=== PATIENT | male | born 1960 | race Caucasian/White ===

== ENCOUNTER → 2016-07-22 | Outpatient (CLI) | payer BC ==
[~2016-07-22] MED LIST: ALEVE220 MG PO; ASPIR 8181 MG PO; ASPIRIN325 PO; ATENOLOL 100MG100 MG PO; ATORVASTATIN CA40 MG PO; CEFDINIR300 MG PO; CHLORDIAZEPOXID25 M1 PO; COLACE100 MG PO; COZAAR 50 MG TA50 M2 PO; DUONEB 2.5-0.5 M3 ML INH; FENOFIBRATE160 MG PO; KLOR-CON M2020 MEQ PO; LASIX 40 MG TAB40 M2 PO; LIDODERM 5%1 PATC1 TRANSDERM; MAGNESIUM OXID200 MG PO; MIRALAX17 GM PO; NEXIUM40 MG PO; NICOTINE TRANSD21 M1; OXYCODONE HCL 55 MG PO; PACERONE 200 M200 M1 PO; POTASSIUM20 PO; REGLAN 10 MG TA10 MG PO; SEROQUEL 25 MG25 M1 PO; TRINATE TABLET1 TAB PO; TYLENOL325 MG PO; VENTOLIN HFA 1818 GM INH; VITAMIN B COMP1 EAC7 PO; WELLBUTRIN SR100 MG PO; XANAX 0.25 MG0.25 MG PO
== END ==
LOC: CAT 10:31
DX: I71.4 Abdominal aortic aneurysm, without rupture (principal)

== ENCOUNTER 2016-07-28 17:35 | Inpatient (IN) | payer BC ==
[~2016-07-28] VITALS: Ht 172.7 cm; Wt 73.5 kg
--- NOTE | ~2016-07-28 | HC ---
[facility] [place] [address] CONSULTATION Name: KAREY DAS JR Room #: 247-P ADM IN .R.#: [id number] Admission: 07/28/16 Attend Phys: Romeo Portillo MD Discharge: Date of : 56 Report #: [id number] THIS REPORT FOR: //name// CC: Gregg Portillo PRIMARY CARE PHYSICIAN: Romeo Portillo M.D. REASON FOR REFERRAL: Hypotension. HISTORY OF PRESENT ILLNESS: The patient is a 56-year-old white male who was admitted with hypotension, weakness and dehydration. A Pulmonary Critical Care consultation was requested. The patient states that he had flu-like symptoms a week or so ago. He states that he has not been feeling well for the last few days. He is seen in followup with his radiologist regarding his previous stent placement for vascular disease. He was felt to be ill-appearing. When he was seen by Dr. Mccurdy, his blood pressure was said to be low. He was subsequently admitted. When he was admitted, his systolic blood pressure had ranged anywhere to around 70 mmHg systolic. I was then called regarding pulmonary critical care consultation. I had recommended patient be transferred to the ICU for hypotension along with multisystem organ failure including hepatitis, acute renal failure along with persistent hypotension. Currently, he feels better. Aside from his weakness and malaise, he denies any chest pain, productive cough, nausea, vomiting, diarrhea. He admits to smoking about a pack a day. He states that he believes he has COPD. He also states that he drinks half a pint of liquor per day and has done so for most of his life. His imaging studies along with his laboratory data suggests liver injury. PAST MEDICAL HISTORY: Include <ELECTRONICALLY SIGNED> By: Toby Nicholson MD 07/30/16 1409 [id number] Toby Nicholson MD /nt
--- NOTE | ~2016-07-28 | HC ---
[facility] [place] [address] CONSULTATION Name: KAREY DAS JR Room #: 217-P [facility] IN M.R.#: [id number] Admission: 07/28/16 Attend Phys: Romeo Portillo MD Discharge: 08/04/16 Date of : 56 Report #: [id number] THIS REPORT FOR: //name// CC: Gregg Portillo DATE OF SERVICE: 07/28/2016 HISTORY OF PRESENT ILLNESS: The patient is a 56-year-old male of Dr. Romeo Portillo, was seen by Dr. Yousif today in our office for followup from his aortic stent graft repair and followup from a CTA last week, which looked to have an intact aneurysm and no evidence endoleak. He had a carotid Doppler done in our office today, which had mild disease and antegrade vertebral flow, so no suggestion of a subclavian issue. Was moderately hypotensive in the 70 range, although relatively asymptomatic. He is a longtime alcoholic, unfortunately not been able to be dry and sober. Last drink was this morning. He seemed slightly jaundiced, pretty emaciated, cachectic, and poor nutrition intake. HOME MEDICATIONS: Allegedly, he was taking his home medications of Aleve, baby aspirin, K-Dur 20, Lipitor 40, Lasix 40, Nexium 40, magnesium, Xanax 0.25, Librium 25 q.i.d., Seroquel, Wellbutrin, atenolol 50, fenofibrate. PAST MEDICAL HISTORY: Aneurysm repair, bypass surgery in December 2014, hypertension, hypercholesterolemia, diastolic dysfunction, alcoholism, alcoholic liver disease, chronic kidney disease, stent graft repair, and a history of DVT. FAMILY HISTORY: Father had a coronary event at age 52. Mother at 92. SOCIAL HISTORY: He lives in [place]. Tobacco user, alcohol user, daily basis, fairly heavy. He is retired. He is still insured via his . ALLERGIES: VICODIN and DEMEROL. REVIEW OF SYSTEMS: Intermittent shakes, some nocturia, and otherwise as stated above. PHYSICAL EXAMINATION: VITAL SIGNS: Blood pressure is 70s/50s, pulse is 90s. GENERAL: He is relatively asymptomatic. He appears somewhat cachectic, but in no distress. He is alert. HEENT: Eyes reveal no xanthelasmas. They may be jaundiced. Pharynx shows dry mucous membranes. NECK: Shows preserved upstrokes. LUNGS: Clear, prolonged expiratory phase. CARDIOVASCULAR: Distant heart tones, S1, S2. ABDOMEN: Slightly protuberant. There is a liver edge [place] [address] CONSULTATION Name: KAREY DAS Room #: 217-P [facility] IN M.R.#: [id number] Admission: 07/28/16 Attend Phys: Romeo Portillo MD Discharge: 08/04/16 Date of : 56 Report #: [id number] tenderness. There is no palpable abdominal aneurysm, which has been repaired. EXTREMITIES: Reveal diminished pulses and distal pulses are diminished. NEUROLOGIC: Slightly tremulous, but otherwise intact. SKIN: Warm and dry. There is some mild palmar erythema. LABORATORY DATA: Sodium 138, potassium 4.6, BUN 19, creatinine 3.1, creatinine was 1.3 in December of last year, glucose was 91. Total bilirubin 4.1, alkaline phosphatase 3.89, magnesium is pending. Total protein 5.9, albumin 2.1, so he is malnourished. GGTP 188, SGPT 140. H and H is 8.7 and 25.8. White count 5.6, MCV 120, platelets are 52,000. Chest x-ray shows emphysema, no other changes. ASSESSMENT: 1. Hypotension, possibly multifactorial. 2. Alcoholic liver disease with elevated LFTs. 3. Mild idiopathic cardiomyopathy, EF 50% on echo today in the office. 4. History of hypertension. 5. Coronary artery disease with CABG in December 2014. 6. Hypercholesterolemia. 7. Malnourishment. 8. Status post aortic stent graft repair in 2015. 10. Chronic obstructive pulmonary disease, continued tobacco use. 11. Acute kidney insufficiency. RECOMMENDATIONS AND PLAN: Admitted to Dr. Portillo. Obviously, we have some significant issues here with hypotension and elevated liver and acute on chronic kidney insufficiency. IV hydration to allow labs to equilibrate. Possibly renal consult. His cardiovascular in fact appears to be stable. I do not believe I would utilize pressor support at this time. He is asymptomatic. We will check a UA looking for any possible other source of infection, but he denies fever or chills. There is no white count . He is thrombocytopenic with platelets 57,000. His UA is pending. Carotid Doppler was done in the office showing wide patency with antegrade vertebral flow, so not suggestive of subclavian issue. Blood pressure was higher in the right upper extremity. I will confirm that. We will discuss further with Dr. Portillo and nephrology. Thank you for allowing me to assist in the care of this patient. <ELECTRONICALLY SIGNED> By: Gregg Mccurdy MD, [facility] 08/05/16 0820 [id number] Gregg Mccurdy MD, FACC /nt
--- NOTE | ~2016-07-28 | HC ---
[facility] [place] [address] CONSULTATION Name: KAREY DAS JR Room #: 247-P [facility] IN M.R.#: [id number] Admission: 07/28/16 Attend Phys: Romeo Portillo MD Discharge: Date of : 56 Report #: [id number] THIS REPORT FOR: //name// CC: Federico Mccurdy MD [facility] Romeo Portillo MD DATE OF SERVICE: 07/29/[address] Romeo Portillo, Dr. Gregg Mccurdy, and Dr. Federico Yousif. CHIEF COMPLAINT: This is a very pleasant 56-year-old white male whom I am asked to evaluate for possible etiologies of a hemoglobin of 6. The patient denies any hematemesis, hematochezia or melena. He has also got thrombocytopenia. PAST MEDICAL HISTORY: Significant for hypertension, hyperlipidemia, arthritis, depression, peptic ulcer disease and he has a history of vitamin B12 deficiency that has not been replaced. The patient has a history of heavy alcohol use, currently is withdrawing from alcohol, but is not in acute DTs at this time. He is noted to have an alcoholic hepatitis, his lipase is elevated, his urine has been dark. His appetite has been decreased for the last 3 days. The patient states that he has epigastric abdominal pain that occurs just postprandially. It is relieved by Aleve, so he takes Aleve four tabs a day. The pain is located in his epigastric area. It is nonradiating and lasts about 20 minutes. The patient also had a history of abdominal aortic aneurysm that was stented in 2016 and he was recently checked and found to be patent and functional. The real reason that the patient is in the intensive care unit right now is because of urinary tract infection and possible urosepsis as well. He has a history of coronary artery disease. He also has a history of hypothyroidism diagnosed on this admission apparently. He has a history of depression. PAST SURGICAL HISTORY: Significant for coronary artery bypass grafting a couple of years ago. He has also had some surgery on his right shoulder. ALLERGIES: Demerol, OxyContin, hydrocodone, Crestor and Chantix. MEDICATIONS: At home included Nexium, Aleve, albuterol, Tenormin, Lipitor, Wellbutrin. Currently is on chlordiazepoxide. At home, he was also taking Cozaar, magnesium oxide, vitamins, Seroquel, and vitamin B complex. Currently, he is taking Zosyn, thyroxine, thiamine, norepinephrine, Valium, and Librium. SOCIAL HISTORY: The patient is regular 1 pack a day smoker and he does drink alcohol, last time he was in the hospital and I tried to ask him to quantify how [facility] [address] [place] [address] CONSULTATION Name: KAREY DAS JR Room #: 247-P [facility] IN M.R.#: [id number] Admission: 07/28/16 Attend Phys: Romeo Portillo MD Discharge: Date of : 56 Report #: [id number] much he drink he fell very threatened by my question and would not give me any answer. I understand that he did stop drinking for a while and then restarted drinking this past May. FAMILY HISTORY: Negative for colon polyps, colon cancer, Crohn's disease and ulcerative colitis. REVIEW OF SYSTEMS: He has occasional dysphagia to solids. Denies any odynophagia. He does have gastroesophageal reflux that controlled with Nexium. He has no history of a hiatal hernia, but does have a duodenal ulcer. Denies any hematemesis, hematochezia or melena. He denies any constipation or diarrhea. He has had darkening of the urine, which is probably related to his mild pancreatitis and his alcoholic hepatitis. He states his weight has been going down. His appetite has been decreased. He complains of postprandial pain as described above that lasts about 20 minutes and he takes Aleve to relieve this. PHYSICAL EXAMINATION: GENERAL: Reveals a well-developed, poorly-nourished 56-year-old white male who is in no apparent distress. At the time of my examination, he is awake and alert and oriented times 4 and cooperative. He is somewhat tremulous. He is jaundiced. HEENT: He is normocephalic and atraumatic, but he is icteric. HEART: Rate and rhythm are regular with a normal S1 and S2. CHEST: Clear bilaterally in all berger. ABDOMEN: Soft. Bowel sounds are present in all 4 quadrants. There is palpable hepatomegaly about 3-4 fingerbreadths below the right costal margin and has tender hepatomegaly. I cannot appreciate a saline tip on abdominal exam. I heard no abdominal bruits. The abdomen is nontender at this time except for palpation of the liver that he indicates is tender. EXTREMITIES: Warm and dry. NEUROLOGIC: Appears grossly intact without lateralizing signs, but I did not test him extensively neurologically. IMPRESSION: 1. Anemia. Hemoglobin 6 and he has got heme negative stool times 1, but his MCV is elevated at 118. He has a history of B12 deficiency, but his B12 level is excellent at this time. He has also thrombocytopenic. 2. The patient has occasional solid food dysphagia for the past 2 years. He is on proton pump inhibitors for his gastroesophageal reflux. He has a history of a duodenal ulcer. He is malnourished at this time, but was able to eat some food today even though his alcoholic hepatitis remains an issue. His albumin is very low and this may be multifactorial due to poor intake and poor synthetic function by the liver. I concerned about this postprandial pain that he has because it may be an indicator of mesenteric ischemia. 3. The patient also has a history of a duodenal ulcer. He does take proton [facility] [address] [place] [address] CONSULTATION Name: KAREY DAS Room #: 247-P [facility] IN [facility].#: [id number] Admission: 07/28/16 Attend Phys: Romeo Portillo MD Discharge: Date of : 56 Report #: [id number] pump inhibitors at home. Here, he is on Pepcid. At home, his gastroesophageal reflux symptoms were controlled with PPIs as well. 4. He appears to currently have alcoholic hepatitis and asterixis. He is at a high risk of alcohol withdrawal complications. His low blood pressure may actually be causing decreased perfusion to the liver and that may complicate his recovery from the alcoholic hepatitis. Hypotension could also contributing to mesenteric ischemia. 5. The patient started to note darkening of the urine 3 days ago when he stopped drinking alcohol. This is probably from his alcoholic hepatitis, but his lipase was also mildly elevated on admission in the 800 range. 6. The patient has an aortic stent placed last year and recent evaluation of that stent shows that it is working well and is patent. 7. The patient reports postprandial epigastric pain lasts about 20 minutes, this could be ischemia. He says he takes the Aleve to relieve this pain. 8. The patient is a 1 pack a day cigarette smoker. 9. Acute urinary tract infection, awaiting culture and sensitivity of urine. It is possible he may have had urosepsis. He is currently on Zosyn and Flagyl. 10. I think he may be bipolar. He thinks that his depression is not well treated. Currently, he is taking Seroquel only and I wonder if he would benefit from antidepressant, also psychological evaluation might be helpful with this. 11. The patient has a history of hypertension, but he is currently hypotensive. He also has a history of hyperlipidemia, arthritis, B12 deficiency. 12. He appears to have a new hypothyroidism. My recommendations are as follows, I would recommend switching to proton pump inhibitor because of his history. We will watch closely acute alcohol withdrawal and delirium tremor as I suspect he will have them. 13. We will add Boost t.i.d. to his supplement his diet. 14. Continue broad spectrum antibiotics consisting of Zosyn and metronidazole until urine culture comes back and then narrow the spectrum if possible. 15. We will workup liver for other causes of hepatitis. 16. Agree with Synthroid. 17. Possible psych eval ?. 18. Consider CTA of mesenteric artery when the patient is able to be off pressors. He has arterial vascular disease and other arteries. 19. We will check hepatitis A, B, C. 20. We will check alpha fetoprotein. 21. We will check his cerebral plasma and alpha 1 antitrypsin, CHEO, sed rate, and smooth muscle antibody. 22. We will do guaiac stools 2 more times. Thank you very much once again for allowing me to participate in his care. <ELECTRONICALLY SIGNED> By: Yumiko Yeung DO 07/30/16 2142 [id number] [id number] Yumiko Yeung DO /nt
--- NOTE | ~2016-07-28 | HC ---
[facility] [place] [address] CONSULTATION Name: KAREY DAS JR Room #: 247-P [facility] IN .R.#: [id number] Admission: 07/28/16 Attend Phys: Romeo Portillo MD Discharge: Date of : 56 Report #: [id number] THIS REPORT FOR: //name// CC: Gregg Portillo REFERRING PHYSICIAN: Romeo Portillo MD. REASON FOR REFERRAL: Hypotension, critical care management. HISTORY OF PRESENT ILLNESS: The patient is a 56-year-old white male who was admitted directly to the CCU with hypotension, weakness and dehydration. A pulmonary critical care consultation was requested. The patient states that he had flu like symptoms over the past week or so. He has not been feeling very well. He was undergoing routine checkup by his radiologist. He was felt to be ill appearing. He was then seen by Dr. Mccurdy. His blood pressure was found to be low. He was subsequently admitted. He was then admitted to the CCU. His systolic according to the nurse had been maneuvering around 70 mmHg for the last few hours. He was admitted around 4:00 in the afternoon according to RN. I have recommended the patient to be transferred to ICU. He was given IV fluids along with vasopressors. Currently, he feels better. He still feels weak . Otherwise, denies any recent febrile illness. The patient does have a history of alcohol abuse and drinks about half a pint a day. Otherwise, no recent febrile illness, chest pain, nausea, vomiting, diarrhea. PAST MEDICAL HISTORY: Includes tobacco abuse, COPD, coronary artery disease, undergoing coronary artery bypass surgery, aortic aneurysm repair, hypertension, hypercholesterolemia, chronic diastolic dysfunction, alcohol abuse, alcoholic liver disease as mentioned above, chronic kidney disease, history of DVT. ALLERGIES: To VICODIN and DEMEROL, reactions unspecified. MEDICATIONS: Lists are reviewed. FAMILY HISTORY: Notable for coronary artery disease in father at the age of 52. Mother at the age of 92, cause unknown. SOCIAL HISTORY: The patient is . He continues to smoke about a pack a day. Continues to drink half a pint a day. He is retired. [facility] [address] [place] [address] CONSULTATION Name: KAREY DAS Room #: 247-P [facility] IN [facility].#: [id number] Admission: 07/28/16 Attend Phys: Romeo Portillo MD Discharge: Date of : 56 Report #: [id number] REVIEW OF SYSTEMS: As mentioned above, otherwise 10-point system review negative. PHYSICAL EXAMINATION: GENERAL: She is awake, alert, in no apparent distress. VITAL SIGNS: Blood pressure had been running 70 mmHg systolic, now to 88 mmHg systolic. Pulse is around 90. Respiratory rate is 20. Saturation more than 90%. The patient is afebrile. HEENT: Normocephalic, atraumatic. NECK: Supple, without lymphadenopathy or thyromegaly. CHEST: Breath sounds are decreased bilaterally without any obvious rales or wheezes. CARDIOVASCULAR: Normal S1, S2. No murmurs or gallop. There is no JVD. There is no carotid bruit. Pulses are 2+/4+ bilaterally. ABDOMEN: Soft, nontender. Hepatomegaly is felt measuring about 4 cm below the right costal margin. GENITOURINARY AND RECTAL: Deferred. EXTREMITIES: There is no edema, cyanosis or clubbing. LABORATORY DATA AND CHEST X-RAY: Reviewed. Electrolytes, creatinine , sodium 138, potassium 4.6, chloride 101, CO2 is 18, BUN is 19. Liver function profile is moderately elevated. WBC is 5600, hemoglobin is 8.7, platelets are 52,000. Albumin is 2.1. Arterial blood gas revealed pH 7.52, pCO2 28, pO2 78 on room air. IMPRESSION: 1. Hypotension, felt to be related to extracellular volume depletion, possible sepsis. 2. Alcohol abuse or alcoholic liver disease. 3. Coronary artery disease with cardiomyopathy with estimated ejection fraction 50%. 4. Hypotension. 5. History of chronic obstructive pulmonary disease with ongoing tobacco abuse. 6. Acute kidney disease/chronic kidney disease. RECOMMENDATION: We will transfer to the ICU, start IV fluids, vasopressors. Broad spectrum antibiotics to treat for possible sepsis, possible UTI. Alcohol withdrawal prophylaxis will be recommended. DVT and GI prophylaxis will be addressed. Bronchodilators will be initiated. The patient would benefit from consultation regarding tobacco and alcohol cessation. [address] [address] CONSULTATION Name: KAREY DAS JR Room #: 247-P [facility] IN M.R.#: [id number] Admission: 07/28/16 Attend Phys: Romeo Portillo MD Discharge: Date of : 56 Report #: [id number] Thank you for the consultation. <ELECTRONICALLY SIGNED> By: Toby Nicholson MD 07/31/16 1527 1408 1534 Toby Nicholson MD /nt
--- NOTE | ~2016-07-28 | HC ---
[facility] [place] [address] CONSULTATION Name: KAREY DAS JR Room #: 247-P ADM IN M.R.#: [id number] Admission: 07/28/16 Attend Phys: Romeo Portillo MD Discharge: Date of : 56 Report #: [id number] THIS REPORT FOR: //name// CC: Gregg Portillo DATE OF SERVICE: 07/29/2016 TITLE OF CONSULTATION: ICU critical care renal consultation. HISTORY OF PRESENT ILLNESS: This 56-year-old male has a very complicated medical history which includes diffuse atherosclerotic cardiovascular disease with known abdominal aortic aneurysm, status post previous stent graft as well as coronary artery disease, status post previous coronary artery bypass surgery. The patient has a significant history of chronic alcohol abuse. He presented to [facility] for followup of his aortic stent graft and was found to be in poor medical condition. He was sent to the [facility] Emergency Room, where he was found to be in acute kidney injury and admitted to the intensive care unit for hypotension and fluid and electrolyte management. The patient acknowledged recent significant alcohol abuse. He describes it as a pint per day of [place]. Laboratory studies on initial presentation included sodium 138, potassium 4.6, chloride 101, CO2 of 18, BUN 19 and creatinine 3.1. AST 277, alk phos 389 and ALT 140. Bilirubin 4.1. Albumin 2.1. PAST MEDICAL HISTORY: Otherwise remarkable as described above. ALLERGIES: Reported to CHANTIX, ROSUVASTATIN, MEPERIDINE and HYDROCODONE. PERSONAL AND SOCIAL HISTORY: The patient is an active drinker as described above. He smokes more than a pack of cigarettes per day. FAMILY HISTORY: Negative for renal disease. CURRENT MEDICATIONS: Include atorvastatin, furosemide, potassium, Librium, Nexium, Aleve, losartan and atenolol. REVIEW OF SYSTEMS: Remarkable for poor appetite and poor oral intake of both liquids and foods. He denies nausea, vomiting, diarrhea or constipation. He denies shortness of breath, productive cough or hemoptysis. PHYSICAL EXAMINATION: GENERAL: Reveals a chronically ill, malnourished male who is rather tremulous, but in no acute distress. VITAL SIGNS: Blood pressure 90/59, pulse 86 and temperature 98. SKIN: Reveals diminished turgor, with no edema. HEENT: Mucous membranes are dry. The head is normocephalic and atraumatic. [address] [address] CONSULTATION Name: KAREY DAS Room #: 247-P [facility] IN .R.#: [id number] Admission: 07/28/16 Attend Phys: Romeo Portillo MD Discharge: Date of : 56 Report #: [id number] The sclerae are icteric. HEENT reveals poor dentition. NECK: Supple. There is no JVD present. LUNGS: Lung berger reveal scattered rhonchi, with minimal expiratory wheezes. CARDIAC EXAMINATION: Reveals a regular rate and rhythm. ABDOMEN: Soft and nontender, without palpable mass or organomegaly. NEUROLOGICAL EXAMINATION: Reveals the patient to be tremulous, but with a nonfocal examination. LABORATORY DATA: Laboratory studies available at the time of consultation include sodium 140, potassium 4.0, chloride 107, CO2 of 24, BUN 20 and creatinine 2.5. White blood cell count 4.0, hemoglobin 7.6, hematocrit 22.2 and platelet count 46,000. Urinalysis reveals slightly cloudy yellow urine, specific gravity 1.020, pH of 5, 2+ protein, trace glucose, 1+ ketones and 3+ bilirubin. ASSESSMENT: 1. Acute kidney injury in the setting of chronic malnutrition and alcohol toxicity. I believe the patient is significantly prerenal at this time and needs isotonic rehydration. I expect his renal function to improve provided that he has not evolved into hepatorenal syndrome, which I think unlikely at this point in time. We will check serial laboratory studies, I and O and daily weights as well as urine for sodium, creatinine and protein and a renal ultrasound. 2. Advanced alcoholic liver disease. 3. Diffuse atherosclerotic cardiovascular disease. 4. Status post previous aortic sent graft. 5. Coronary artery disease, status post previous coronary artery bypass surgery. 6. Ongoing significant tobacco abuse with chronic obstructive pulmonary disease. PLAN: We will follow serial laboratory studies, I and O and daily weights. I have discussed this in detail with the patient and his . Critical care 45 minutes. <ELECTRONICALLY SIGNED> By: Lenny Reyes MD 07/30/16 1133 1057 [id number] Lenny Reyes MD /nt
--- NOTE | ~2016-07-28 | S ---
[facility] [place] [address] SURGICAL PATH RPT PROCEDURE Name: KAREY DAS JR Room #: 247-P ADM IN M.R.#: [id number] Admission: 07/28/16 Date of : 56 Discharge: Report #: [id number] Path Case #: [id number] PATHOLOGY REPORT COLLECTION DATE: 07/30/2016 RECEIVED DATE: 07/30/2016 SUBMITTING PHYS: Dr. Mary Rg OTHER PHYS: Dr. Gregg Reyes SPECIMEN(S) RECEIVED: A.Peripheral smear * * * * * * * * * * * * FINAL DIAGNOSIS: Peripheral blood smear: - Severe macrocytic anemia and severe thrombocytopenia. (see comment) COMMENT: Overall, the peripheral blood has severe macrocytic anemia and severe thrombocytopenia. The WBC count is within the normal reference range. No schistocytes or microspherocytes are seen. The etiology of the findings is unclear based entirely on slide review. Potential causes of macrocytic anemia include vitamin B12 and/or folate deficiency, liver and/or thyroid disease, and primary bone marrow disorders. Potential causes of thrombocytopenia include immune and non-immune platelet destruction, drug and/or toxic exposures, acute blood loss, dilutional, and primary bone marrow disorders. Correlation with clinical history and additional laboratory data is recommended. The case is discussed with Dr. Mary Rg on 07/30/16 at approximately 10:30 AM. (CLW:; d/t: 07/30/16) PATHOLOGIST: Lola Jacques M.D. REPORT ELECTRONICALLY SIGNED BY: Lola Jacques M.D. DATE/TIME: 07/30/2016 15:05 * * * * * * * * * * * * MICROSCOPIC DESCRIPTION: CBC Data (07/30/16): WBC 4,500 /uL, RBC 1.68, hemoglobin 6.7 g/dL, hematocrit 19.9%, MCV 118.7 fL, MCH 40.0 pg, MCHC 33.7 g/dL, RDW 14.2%, platelet count 42,000 /uL. Manual white blood cell differential: 75% segs, 3% bands, 9% lymphs, 8% monos, 5% eos. Peripheral Blood Smear: [address] [address] SURGICAL PATH RPT PROCEDURE Name: KAREY DAS Room #: 247-P ADM IN M.R.#: [id number] Admission: 07/28/16 Date of : 56 Discharge: Report #: [id number] Path Case #: [id number] Cytomorphological examination of the Murray's stained peripheral blood smear confirms the provided data. Red blood cells show severe macrocytic anemia with no significant anisopoikilocytosis. Occasional hematocytes are noted. No schistocytes or microspherocytes are seen. White blood cells are predominantly segmented neutrophils and are without significant dyspoiesis or significant left shift. Lymphocytes are predominantly small, round, and mature appearing with condensed chromatin and scant cytoplasm with admixed large granular lymphocytes. On scanning, no markedly atypical lymphoid cells are seen. Monocytes are mature. Platelets are markedly decreased in number and mainly normal in morphology with rare larger platelets noted. CLINICAL HISTORY: 56 year-old man with anemia and thrombocytopenia. Morphologic review of the peripheral blood smear is requested by the patient's physician. INITIAL CPT CODE(S): A; [place] Professional services performed by [facility] at [facility] [address], [place] [address] Technical services performed by [facility] at [address] [place] [address], [address], [place] [address]. [facility] [address] [place] [address] PHONE: [phone] DIRECTOR: Ulisses Yusuf M.D. * * * END OF REPORT * * *
--- NOTE | ~2016-07-28 | HC ---
[facility] [place] [address] CONSULTATION Name: KAREY DAS JR Room #: 217-P ADM IN M.R.#: [id number] Admission: 07/28/16 Attend Phys: Romeo Portillo MD Discharge: Date of : 56 Report #: [id number] THIS REPORT FOR: //name// CC: Gregg Portillo DATE OF SERVICE: 08/02/2016. CHIEF COMPLAINT: Right elbow infection. HISTORY OF PRESENT ILLNESS: This frail 56-year-old gentleman with psychiatric disease and alcohol abuse is admitted for hypotension and confusion and it appears that he has alcohol related confusion and toxic encephalopathy. In addition, he apparently fell at home 1 or 2 weeks ago resulting in a small abrasion over the lateral aspect of the right elbow. Now, he has persistent redness, warmth and superficial oozing from this area of abrasion, there is some question about possible involvement of the olecranon bursa as well. At the time of my evaluation, he is accompanied by his . She is able to offer his history. He is slightly confused and lethargic. He states he has no other areas of significant discomfort aside from the right elbow. The right elbow demonstrates normal contour, alignment and full range of motion. There is, however, some mild puffiness at the posterior aspect overlying the olecranon bursa. The bursa itself; however, does not seem to be involved with significant fluid and certainly does not have the appearance of an abscess nor a significant septic bursitis. There is, however, an area of a deep abrasion over the lateral aspect adjacent to the olecranon bursa, this is about 1.5 cm in diameter and has some yellowish seropurulent oozing. There is no clear evidence of a subcutaneous abscess in this region, but there is a significant superficial soft tissue infection. There is not much swelling or redness about the remainder of the distal arm or upper forearm. NEUROLOGIC: Distal neurologic and vascular status appeared to be intact. IMPRESSION: In summary, this gentleman has a soft tissue infection with cellulitis near the tip of the right elbow. At this point, I do not see evidence of a significant olecranon bursitis or abscess. Consequently, I do think surgical debridement at this point is necessary, he has been started on appropriate IV antibiotics and I expect we will see some improvement. I will follow along and certainly may reconsider the option of surgical debridement if there seems to be more significant fluid collection or abscess formation in the region of the bursa. <ELECTRONICALLY SIGNED> By: Federico Green MD 08/03/16 1050 0801 0925 Federico Green MD /nt
--- NOTE | ~2016-07-28 | HC ---
[facility] [place] [address] CONSULTATION Name: KAREY DAS JR Room #: 217-P [facility] IN .R.#: [id number] Admission: 07/28/16 Attend Phys: Romeo Portillo MD Discharge: Date of : 56 Report #: [id number] THIS REPORT FOR: //name// CC: Gregg Portillo DATE OF SERVICE: 07/31/2016 IDENTIFICATION: Psychiatric consultation is requested for mood disorder and alcohol withdrawal. HISTORY OF PRESENT ILLNESS: The patient is a 56-year-old , retired male with a longstanding history of alcohol dependence. He was seen by Dr. Herman for psychiatric consultation in 11/2015. At that time, there was no evidence that the patient had any underlying history of roxie or psychosis and he also denied any significant depression. He did, however, endorse anxiety and there appeared to be some component of self medicating. Sobriety was certainly recommended. He was offered followup with Dr. Herman and with Anthony Smith, but it does not appear that patient followed through. The patient is now in the hospital with alcohol withdrawal. He had reportedly won his disability case and relapsed on alcohol to celebrate and continued drinking. In short however, it is not convincing whether the patient truly had a prolonged period of sobriety. Certainly he continues displaying significant alcohol withdrawal symptoms here and he has lab stigmata of chronic alcohol use. He has been impulsive and confused during his stay here in the hospital. ALLERGIES: Reviewed. Full list available on the chart. Psychiatric medication allergies include Chantix. MEDICATIONS: Reviewed and include Librium 75 mg every 3 hours as needed, Librium 75 mg every 4 hours as needed, Librium 75 mg every 4 hours scheduled, Valium 5 mg IV or oral as needed, Ativan, various dosing and order set noted, Xanax 0.25 mg 3 times daily as needed. PAST MEDICAL HISTORY: Alcohol-related comorbidities including transaminitis, thrombocytopenia, anemia, sepsis, urinary tract infection, history of DVT, abdominal aortic aneurysm, coronary artery disease status post coronary artery bypass graft, hyperlipidemia, COPD, hypothyroidism. FAMILY HISTORY: Noncontributory. SOCIAL HISTORY: The patient is and lives with his . He smokes cigarettes. LABORATORY DATA: Urine drug screen was positive for [place] [address] CONSULTATION Name: KAREY DAS Room #: 217-P [facility] IN .R.#: [id number] Admission: 07/28/16 Attend Phys: Romeo Portillo MD Discharge: Date of : 56 Report #: [id number] alcohol level less than 10. AST initially 277, most recently 210. ALT initially 140, most recently 127. MENTAL STATUS EXAMINATION: Disheveled appearance. cooperative, but confused. Currently, unable to offer meaningful history. Did deny any suicidal or homicidal ideation. No evidence for hallucinations or delusions. Insight and judgment are currently poor. DIAGNOSIS: Alcohol dependence, delirium. PLAN: Firstly, given the patient's transaminitis, would recommend utilizing lorazepam as the mainstay of treatment for alcohol withdrawal. This agent is preferable to the Librium due to differences in first pass hepatic metabolism. It is noted that the patient has orders for different benzodiazepines on his chart. We will simplify down to simply the lorazepam. We will use 2 mg for a CIWA of 8 to 15 and 4 mg for a CIWA of greater than 15. [address] him on an Ativan taper starting with 2 mg every 4 hours. We will discontinue the Xanax and I would not resume this in the future. He is highly likely to abuse this medication on an outpatient basis given his history of alcohol dependence. Given the patient's current delirium and confusion, I am unable to adequately assess any underlying depression or anxiety. I will return tomorrow to reassess his mental status. Thank you for this consultation. Please contact me with any further questions or concerns. <ELECTRONICALLY SIGNED> By: Margarita Lynn MD 08/01/16 1234 1350 [id number] Margarita Lynn MD /nt
--- NOTE | ~2016-07-28 | H ---
[facility] [place] [address] HISTORY AND PHYSICAL Name: KAREY DAS JR Room #: 247-P ADM IN M.R.#: [id number] Admission: 07/28/16 Attend Phys: Romeo Portillo MD Discharge: Date of : 56 Report #: [id number] THIS REPORT FOR: //name// CC: Gregg Portillo DATE OF SERVICE: 07/28/2016 CHIEF COMPLAINT: Weakness, dehydration, anemia. HISTORY OF PRESENT ILLNESS: The patient has an abdominal aortic aneurysm that was repaired last summer with a stent graft done. In routine followup with his stent graft, he had a CT scan here last week that showed the stent graft to be in good position. He was seen for routine office appointment today by Dr. Yousif, who confirmed that the stent graft was indeed doing well and correctly placed and did not have an endoleak, but noticed that the patient appeared pale, weak and shaky with the low blood pressure. He was referred to the Cardiology division of [facility] where Dr. Mccurdy agreed that his blood pressure was too low, and he is referred to the hospital for further evaluation. Upon coming to the hospital, laboratory already drawn shows that he is volume depleted with a creatinine elevated, and a hemoglobin that is low. His liver enzymes are elevated. He reports having been sober until recently when he "1" his case for social security complete disability. At that time, the steady source of income relates quite a bit of stress and he decided to celebrate with a drink. Unfortunately, with his alcoholism, he did not stop drinking and currently continues to drink actively. This has been going on for several weeks or several months, and he has become progressively weaker. His last alcoholic drink was this morning. He has not been eating, and his recent weight loss has been 20 pounds. He has had dry heaves. He denies seeing blood in the stool, but has seen an occasional superficial bright red blood in the outside of the stool. He has chronic abdominal pain that has not changed for some time, note is made that an EGD performed last summer was normal. He continues to have chronic abdominal pain, and did have bleeding ulcers identified on an EGD many years ago. Because of chest pain at the site of his surgery, and neck pain, he takes 2-4 Aleve tablets every day. PAST MEDICAL HISTORY: Is significant for bleeding or stomach ulcers in the distant past as mentioned above. He also has chronic and now this episode of acute alcoholism. He smokes a pack a day. He has coronary artery disease, that required a coronary artery bypass graft in 12/12/[address] Ricardo Zhao. [place] [address] HISTORY AND PHYSICAL Name: THIAGOKAREY Room #: 247-P [facility] IN M.R.#: [id number] Admission: 07/28/16 Attend Phys: Romeo Portillo MD Discharge: Date of : 56 Report #: [id number] He had an infrarenal abdominal aortic aneurysm stent graft placed by Dr. Youngblood and Dr. Blanco on 12/14/2015. After his bypass surgery, he had a prolonged recovery that appeared to be delirium tremens from alcohol withdrawal. He since has had previous withdrawal of episodes from alcohol. He has a history of alcoholic hepatitis, anxiety, depression, chronic gastroesophageal reflux disease, insomnia, hypertension, hyperlipidemia, chronic insomnia that has been benefitted in the past from quetiapine 25-75 mg at bedtime. He has COPD and remains current cigarette smoker. He has diastolic dysfunction, although an echocardiogram in Dr. Mccurdy's office today appeared to have preserved left ventricular function. ALLERGIES: Unknown reaction to CHANTIX, ROSUVASTATIN, this caused aches, breathing problems after his cardiac surgery from MEPERIDINE and HYDROCODONE has caused itching. SOCIAL HISTORY: He is an active drinker. His brings him alcohol "so that he won't get in the car and drive himself to the store." He smokes more than a pack of cigarettes per day, although his points out that most of the cigarettes he smokes only a few puffs off before he puts them out. He lives independently at home with his . She worse during the day and currently he is alone by himself at home during the day. When asked about resuscitation, he indicated that he wanted one attempt at cardiopulmonary resuscitation, his was present and she is his power of collections attorney and she agreed with this. They both settled on a "full code blue without placement on a life support machine" and is therefore made a full code, but do not intubate. He reports he just simply is not able to eat and has nausea and dry heaves easily. He has chronic neck pain that is really bothersome to him and constantly has his neck forward. He denies shortness of breath. He does have a sternal incision pain when he moves his thorax very much. He had a bout of diarrhea several weeks ago. He did have some "blood on the outside of the stool" recently as well. Vague nausea has tremendously reduced his oral intake. He denies other musculoskeletal aches and pain. CURRENT MEDICATIONS: List was reviewed with his who gives him his medications: Atorvastatin 40 mg daily, potassium chloride 20 mEq one half tablet daily, chlordiazepoxide 10 mg tablet twice daily for morning and evening shakes, mvge-ley-qacprhw Nexium two pills every morning (40 mg total), Aleve oeav-roy-innddwv tablets 2 pills in the morning and he does not take baby aspirin because he says the two Aleve tablets provide the same antiplatelet [facility] [address] [place] [address] HISTORY AND PHYSICAL Name: KAREY DAS Room #: 247-P [facility] IN .R.#: [id number] Admission: 07/28/16 Attend Phys: Romeo Portillo MD Discharge: Date of : 56 Report #: [id number] effect. Furosemide 40 mg daily was discontinued several months ago (it had been administered last fall for his mild cardiomyopathy). Losartan 50 mg in the evening by Dr. Mccurdy. He has cut in half. Atenolol 100 mg, he is taking a full pill. He has vitamin, Super B-complex, magnesium oxide 400 mg 1 daily, vitamin D3 5000 units and liquid vitamins that one of his children have brought him that has helped him gain strength. PHYSICAL EXAMINATION: GENERAL: Shows a -fuzt-rct male who is weak and shaky and appears chronically ill. He was examined in his hospital bed at night and shades of jaundice could have been missed. HEENT: Unremarkable except that oral mucosa was quite dry. CHEST: Breath sounds are slightly diminished anteriorly and posteriorly both the right and the left lung berger without extra sounds. CARDIOVASCULAR: S1 and S2 are normal and regular. ABDOMEN: Soft and nontender. The liver appears to be about 4 fingerbreadths below the mid right costal margin, and the liver edge is somewhat firm. No other organomegaly or masses were identified. The heart tones are normal and the rhythm is regular. EXTREMITIES: There is minimal amount, if any of pedal edema present in the lower extremities. NEUROLOGIC: No gross focal neurological motor deficits are identified. His outstretched hands have a noticeable tremor. LABORATORY DATA: His laboratory is remarkable for a creatinine of 3.1 compared with his office baseline from May 2016 that was 1.59. His BUN remains at 19. His CO2 is low at 18 with an high anion gap. His normal bilirubin is 0.4, when last seen in my office 05/12/2016 his bilirubin had risen to 2.1, and today is even higher at 4.1. His AST was 277, compared with 491 in my office and his ALT is 140 compared with 262 in my office. His albumin is severely low at 2.1. WBCs are 5.6 thousand, hemoglobin is low at 8.7 compared with a baseline of 10.4 from my office. His MCV is 120.7 compared with 111 from May. His platelet count is diminished at 52,000 compared with a 129,000 from May 12. A chest x-ray report shows normal cardiac size with severe cystic changes of COPD. ASSESSMENT: 1. Severe weakness. 2. Metabolic acidosis. 3. Acute renal failure. [address] [address] HISTORY AND PHYSICAL Name: KAREY DAS JR Room #: 247-P ADM IN M.R.#: [id number] Admission: 07/28/16 Attend Phys: Romeo Portillo MD Discharge: Date of : 56 Report #: [id number] 4. Nausea, vomiting and abdominal pain. 5. Acute anemia. 6. Acute thrombocytopenia. 7. Acute on chronic alcoholism - his breaths had the unmistakable odor of alcohol. 8. Untreated depression. 9. Anxiety treated with chlordiazepoxide. 10. Insomnia - chronic. PLAN: He is being admitted on an alcohol withdrawal protocol, using a chlordiazepoxide 50 mg every 4 hours as a "underlying base" with IV diazepam as needed. Laboratory studies will be repeated in the morning. He may need a repeat EGD given his history of bleeding ulcers in the distant past, as he has been steadily loosing weight - 20 pounds - over the last several months to six months and is continually taking 2-4 Aleve tablets a day for various aches and pain. Abdominal ultrasound will be done to evaluate his firm liver border as well as his low platelet count. Blood for culture. A full code blue with do not intubate. By: [id number] Romeo Portillo MD /nt
--- NOTE | ~2016-07-28 | HC ---
[facility] [place] [address] CONSULTATION Name: KAREY DAS JR Room #: 217-P [facility] IN .R.#: [id number] Admission: 07/28/16 Attend Phys: Romeo Portillo MD Discharge: Date of : 56 Report #: [id number] THIS REPORT FOR: //name// CC: Gregg Portillo DATE OF SERVICE: 08/01/2016 HISTORY OF PRESENT ILLNESS: The patient is a 56-year-old white male who was admitted with hypotension, volume depletion, noted to have septic shock. He had acute renal failure. He was noted to have acute on chronic alcoholic hepatitis. He was monitored regarding alcohol withdrawal. He continued on vasopressors, also was noted to have pancytopenia with severe thrombocytopenia, suspected bone marrow toxicity related to alcohol. He gradually stabilized. Hypotension is better on midodrine. Renal function has improved. He has been transferred out of the intensive care unit and is on the progressive care unit. We are seeing him in rehabilitation medicine consultation. PAST MEDICAL HISTORY: Includes an abdominal aortic aneurysm, which was repaired with a stent graft 12/14/2015; history of coronary artery bypass grafting x5, 12/12/2014; moderate cardiomyopathy; history of COPD; history of bleeding stomach ulcers in the past. HABITS: Tobacco 1 pack per day, past history of ETOH. He stopped his drinking, but then when he apparently was cleared for Medicare disability, to celebrate he began drinking again and then continued with drinking up to the point of this hospitalization. ALLERGIES: CHANTIX, DEMEROL, HYDROCODONE, CRESTOR. SOCIAL HISTORY: Lives with , she works. He is alone during the day. House, 2 steps in. There is a ramp. He did use a walker if needed. REVIEW OF SYSTEMS: No current complaints of chest pain, shortness of breath or abdominal discomfort. No focal extremity pain complaints. PHYSICAL EXAMINATION: GENERAL: He is a 56-year-old unkempt white male in no obvious distress. VITAL SIGNS: Last recorded temperature is 97.3, pulse of 96, respirations 20, blood pressure 97/67. GENERAL: He is alert, follows basic 1 step commands without difficulty. HEENT: Facies are symmetric. EXTREMITIES: He has functional range of motion of both upper extremities without obvious focal weakness. DTRs are trace to 1. In his lower extremities, there is no focal calf swelling, functional range of motion, strength is a grade 4/5. DTRs are trace to 1. Tone appeared to be intact. [place] [address] CONSULTATION Name: KAREY DAS JR Room #: 217-P [facility] IN [facility].#: [id number] Admission: 07/28/16 Attend Phys: Romeo Portillo MD Discharge: Date of : 56 Report #: [id number] with sit to stand and is ambulating 150 feet front-wheeled walker, contact guard assistance. ASSESSMENT: A 56-year-old white male with the following problem list: 1. Medical complexity with generalized debilitation. 2. Septic shock. 3. Hypotension, which has improved, ____ is off the pressors and he is doing better on the midodrine. 4. Alcoholic liver disease. 5. Mild idiopathic cardiomyopathy. 6. Coronary artery disease status post coronary artery bypass graft. 7. Chronic obstructive pulmonary disease with tobacco abuse. 8. Acute renal insufficiency that has improved. 9. Alcohol detox/history of DT like syndrome. PLAN: The patient is progressing as far as his therapies and is now ambulating 150 feet front-wheeled walker, contact guard assistance. His transfers are contact guard assistance. Would anticipate he should be able to return back to the home setting likely with some home healthcare therapies as he further medically stabilizes. He would appear to be too high level to warrant an acute in-hospital inpatient rehabilitation stay. Thank you for asking us to assist in this patient's care. <ELECTRONICALLY SIGNED> By: Federico Duarte MD 08/04/16 1455 1136 1534 Federico Duarte MD /nt
--- NOTE | ~2016-07-28 | HC ---
[facility] [place] [address] CONSULTATION Name: KAREY DAS JR Room #: 247-P [facility] IN ..#: [id number] Admission: 07/28/16 Attend Phys: Romeo Portillo MD Discharge: Date of : 56 Report #: [id number] THIS REPORT FOR: //name// CC: Gregg Portillo DATE OF SERVICE: 07/29/2016 ICU CRITICAL CARE RENAL CONSULTATION HISTORY OF PRESENT ILLNESS: This 56-year-old male has a complicated medical history which includes diffuse atherosclerotic cardiovascular disease, status post previous aortic stent graft for abdominal aortic aneurysm. He has a history of coronary artery disease status post previous coronary artery bypass surgery. He has a history of longstanding tobacco abuse and alcohol abuse. He has a history of significant GI bleed in the past. The patient presented for followup of his aortic stent graft to Dr. Yousif on the day of admission and was found to be in debilitated condition with weakness, anorexia and hypotension. He was subsequently admitted in the setting of significant ongoing alcohol abuse. His creatinine was elevated to 3.1 on admission and renal consultation is requested. The patient denies previous known history of renal insufficiency, nephrolithiasis or family history of renal disease. PAST MEDICAL HISTORY: Remarkable as described above for diffuse atherosclerotic cardiovascular disease, status post aortic stent graft and previous coronary artery bypass surgery. He has ongoing tobacco abuse of 1 pack of cigarettes daily. He has a history of previous GI bleeding. He has known dyslipidemia. ALLERGIES: Reported to CHANTIX, CRESTOR, MEPERIDINE and HYDROCODONE. MEDICATIONS: On admission include atorvastatin, potassium, chlordiazepoxide, Nexium, Aleve, furosemide, losartan, atenolol. REVIEW OF SYSTEMS: Remarkable for the absence of peripheral edema. He denies loss of consciousness. He denies epistaxis or vertigo. He denies shortness of breath, productive cough, hemoptysis, chest pain, palpitations. He reports poor appetite with an approximately 15-pound weight loss. PHYSICAL EXAMINATION: GENERAL: Reveals a chronically ill male who appears older than his stated age, in no acute distress. VITAL SIGNS: Blood pressure 85/58, MAP 67, pulse 86, respirations 16. SKIN: Reveals diminished turgor, no clubbing, cyanosis, edema or adenopathy. HEENT: The head is normocephalic and atraumatic. There is mild scleral icterus [address] [address] CONSULTATION Name: KAREY DAS JR Room #: 247-P [facility] IN ..#: [id number] Admission: 07/28/16 Attend Phys: Romeo Portillo MD Discharge: Date of : 56 Report #: [id number]. Mucous membranes are dry. NECK: Veins are flat. RESPIRATORY: Examination reveals scattered wheezes with bilateral rhonchi. CARDIAC: Reveals a regular rate and rhythm without rub. ABDOMEN: Soft and nontender, without palpable mass or organomegaly. NEUROLOGIC: Reveals the patient to be a fair historian with a nonfocal examination. LABORATORY STUDIES: Available at this time include Sodium 140, potassium 4.0, chloride 107, CO2 24, BUN 20, creatinine 2.5, glucose 77. AST 221, bilirubin 3.7, alk phos 319, ALT 117, albumin 1.7. White blood cell count 4000, hemoglobin 7.6, hematocrit 22.2, MCV 118.3, platelet count 46,000. Urinalysis reveals cloudy urine, specific gravity 1.020, pH 5, 2+ protein, 1+ ketones, 3+ bilirubin. ASSESSMENT: 1. Acute kidney injury in this patient who has volume depletion and ongoing significant alcoholic hepatitis. Differential diagnosis includes prerenal azotemia with a possible element of evolving hepatorenal syndrome. His current falling creatinine weighs against hepatorenal, but he does have very significant alcohol related hepatitis. We will continue isotonic hydration with serial laboratory studies, I and O and daily weights. He will receive electrolyte supplementation as appropriate. 2. Advanced alcoholic hepatitis secondary to significant ongoing alcohol abuse. 3. Hypotension with evolving anemia and history of prior gastrointestinal bleed. He will likely require packed red blood cell transfusion. 4. Chronic obstructive pulmonary disease with ongoing significant tobacco abuse. 5. Diffuse atherosclerotic cardiovascular disease with previous abdominal aortic aneurysm status post stent graft and previous coronary artery bypass surgery. 6. Cytopenia related to significant alcohol ingestion. PLAN: This patient is critically ill at this time with multiple primary medical problems. We will follow him closely with appropriate electrolyte and volume replacement with serial laboratory studies, I and O and daily weights. Please see orders. <ELECTRONICALLY SIGNED> By: Lenny Reyes MD 07/29/16 1314 1015 1128 Lenny Reyes MD /nt
[2016-07-28 18:19] VITALS: BP 74/50
[2016-07-28 18:20] VITALS: BP 114/82
[2016-07-28 18:44] LABS: HEMATOCRIT 25.8 % (42.0-52.0); HEMOGLOBIN 8.7 gm/dL (14.0-18.0); MCH 40.6 pg (26.0-34.0); MCHC 33.7 g/dL (28.0-37.0); MCV 120.7 fL (80.0-100.0); RBC 2.14 mil/uL (4.50-6.00); RDW 14.5 % (10.5-14.5); WBC 5.6 thou/uL (4.0-11.0)
[2016-07-28 18:51] LABS: CALCIUM 8.5 mg/dL (8.5-10.1); CREATININE 3.1 mg/dL (0.6-1.3); POTASSIUM 4.6 mmol/L (3.5-5.1)
[2016-07-28 18:56] LABS: ALBUMIN 2.1 g/dL (3.4-5.0); TOTAL BILIRUBIN 4.1 mg/dL (<0.1-1.0); TOTAL PROTEIN 5.9 g/dL (6.4-8.2)
[2016-07-28 19:55] VITALS: BP 62/45
[2016-07-28 20:04] VITALS: BP 70/45
[2016-07-28 22:09] LABS: AMP/METHAMP Negative (Negative); BARBITURATES Negative (Negative); BENZODIAZEPINES POSITIVE (Negative); COCAINE Negative (Negative); METHADONE Negative (Negative); OPIATES Negative (Negative); PCP Negative (Negative); THC Negative (Negative)
[2016-07-28 22:11] LABS: MAGNESIUM 1.2 mg/dL (1.8-2.4); PHOSPHORUS 2.6 mg/dL (2.5-4.9)
[2016-07-28 22:12] LABS: INR 1.2; PROTIME 12.3 Seconds (9.3-11.4)
[2016-07-28 22:31] LABS: URINE BILIRUBIN 3+ (Negative); URINE BLOOD NEGATIVE (Negative); URINE COLOR ORANGE; URINE GLUCOSE-RANDOM* TRACE (Negative); URINE KETONES 1+ (Negative); URINE NITRITE POSITIVE (Negative); URINE PROTEIN (DIPSTICK) 2+ (Negative)
[2016-07-28 22:36] LABS: ICTOTEST (BILI CONFIRMATORY) Positive (Negative)
[2016-07-28 22:41] LABS: ABG SAMPLE TYPE ARTERIAL; BE(vivo) 0 mmol/L (-2 to +3); HCO3 22.5 mmol/L (22.0-26.0); O2(CT) 10.4 mL/dL (15.0-23.0); O2Hb 92.9 % (92.0-98.0); PCO2 28.1 mmHg (35.0-45.0); PO2 78.2 mmHg (80.0-100.0); pH 7.522 (7.360-7.450); sO2 96.8 % (92.0-98.0); tCO2 23.4 mmol/L (24.0-30.0)
[2016-07-28 22:43] LABS: STICK SITE L.BRACHIAL
[2016-07-28 22:43] LABS: TSH 7.424 uIU/mL (0.358-3.740)
[2016-07-28 22:48] LABS: HYALINE CASTS 0-3 Few /LPF (None Seen)
[2016-07-28 22:49] LABS: BACTERIA 1-9 Few /HPF (None Seen); CRYSTALS None Seen /LPF (None Seen); SQUAMOUS 0-3 Few /LPF (0-3); URINE RBC None Seen /HPF (0-2); URINE WBC 0-5 Rare /HPF (0-5)
[2016-07-28 23:30] LABS: FOLIC ACID 20.7 ng/mL (8.6-58.9)
[2016-07-28 23:55] VITALS: BP 73/46
[2016-07-29] VITALS (56 sets, daily range): BP systolic 50–116; BP diastolic 30–88
[2016-07-29 00:16] LABS: AMYLASE 65 U/L (25-115)
[2016-07-29 05:36] LABS: HEMATOCRIT 22.2 % (42.0-52.0); HEMOGLOBIN 7.6 gm/dL (14.0-18.0); MCH 40.5 pg (26.0-34.0); MCHC 34.2 g/dL (28.0-37.0); MCV 118.3 fL (80.0-100.0); RBC 1.88 mil/uL (4.50-6.00); RDW 14.2 % (10.5-14.5)
[2016-07-29 05:43] LABS: MANUAL DIFF YES
[2016-07-29 05:55] LABS: ALBUMIN 1.7 g/dL (3.4-5.0); CALCIUM 7.6 mg/dL (8.5-10.1); CREATININE 2.5 mg/dL (0.6-1.3); TOTAL BILIRUBIN 3.7 mg/dL (<0.1-1.0); TOTAL PROTEIN 4.8 g/dL (6.4-8.2)
[2016-07-29 06:34] LABS: ABG SAMPLE TYPE ARTERIAL; HCO3 24.1 mmol/L (22.0-26.0); LACTATE 1.44 mmol/L (0.5-2.0); O2(CT) 10.2 mL/dL (15.0-23.0); O2Hb 94.2 % (92.0-98.0); PCO2 31.6 mmHg (35.0-45.0); PO2 76.2 mmHg (80.0-100.0); sO2 96.4 % (92.0-98.0); tCO2 25.1 mmol/L (24.0-30.0)
[2016-07-29 06:35] LABS: STICK SITE L.BRACHIAL
[2016-07-29 07:52] LABS: ABSOLUTE NEUTROPHILS 3.5 thou/uL (1.4-8.2); TOTAL CELL COUNT 100
[2016-07-29 07:54] LABS: ANISOCYTOSIS SLIGHT; POIKILOCYTOSIS SLIGHT
[2016-07-29 07:55] LABS: OTHER MORPHOLOGY STOMATOCYTES
[2016-07-29 07:56] LABS: PLATELET ESTIMATE DECREASED
[2016-07-29 07:58] LABS: PLATELET COUNT 46 thou/uL (150-400)
[2016-07-29 17:09] LABS: ALBUMIN 1.8 g/dL (3.4-5.0); CALCIUM 7.4 mg/dL (8.5-10.1); CREATININE 2.1 mg/dL (0.6-1.3); MAGNESIUM 2.9 mg/dL (1.8-2.4); PHOSPHORUS 2.4 mg/dL (2.5-4.9); POTASSIUM 4.4 mmol/L (3.5-5.1)
[2016-07-30] VITALS (48 sets, daily range): BP systolic 76–148; BP diastolic 44–103
[2016-07-30 06:12] LABS: RBC 1.68 mil/uL (4.50-6.00)
[2016-07-30 06:13] LABS: MCHC 33.7 g/dL (28.0-37.0); MCV 118.7 fL (80.0-100.0); RDW 14.2 % (10.5-14.5); WBC 4.5 thou/uL (4.0-11.0)
[2016-07-30 06:16] LABS: ALBUMIN 1.5 g/dL (3.4-5.0); CREATININE 1.7 mg/dL (0.6-1.3); MAGNESIUM 2.2 mg/dL (1.8-2.4); PHOSPHORUS 1.8 mg/dL (2.5-4.9); TOTAL BILIRUBIN 3.9 mg/dL (<0.1-1.0); TOTAL PROTEIN 4.6 g/dL (6.4-8.2)
[2016-07-30 06:18] LABS: MANUAL DIFF YES
[2016-07-30 06:19] LABS: HEMATOCRIT 19.9 % (42.0-52.0); HEMOGLOBIN 6.7 gm/dL (14.0-18.0); PLATELET COUNT 42 thou/uL (150-400)
[2016-07-30 09:11] LABS: % SATURATION 53 % (20-39); IRON 36 ug/dL (65-175); TIBC 68 ug/dL (250-450); UIBC 32 ug/dL
[2016-07-30 09:50] LABS: ABSOLUTE NEUTROPHILS 3.5 thou/uL (1.4-8.2); TOTAL CELL COUNT 100
[2016-07-30 09:51] LABS: LARGE PLATELETS OCCASIONAL
[2016-07-30 09:56] LABS: ANISOCYTOSIS SLIGHT
[2016-07-30 09:57] LABS: ABSOLUTE RETIC COUNT 0.0393 10^6/uL; OBSERVED RETIC COUNT 2.35 % (0.6-2.6)
[2016-07-30 20:11] LABS: HEPATITIS C VIRUS AB <0.1 (0.0-0.9)
[2016-07-31] VITALS (17 sets, daily range): BP systolic 83–118; BP diastolic 47–81
[2016-07-31 04:29] LABS: WBC 5.2 thou/uL (4.0-11.0)
[2016-07-31 04:30] LABS: HEMATOCRIT 26.2 % (42.0-52.0); MCH 36.4 pg (26.0-34.0); RBC 2.51 mil/uL (4.50-6.00); RDW 25.5 % (10.5-14.5)
[2016-07-31 04:39] LABS: HEMOGLOBIN 9.2 gm/dL (14.0-18.0); MCV 104.2 fL (80.0-100.0)
[2016-07-31 04:41] LABS: ALBUMIN 1.5 g/dL (3.4-5.0); CREATININE 1.3 mg/dL (0.6-1.3); MAGNESIUM 1.6 mg/dL (1.8-2.4); PHOSPHORUS 1.9 mg/dL (2.5-4.9); POTASSIUM 3.6 mmol/L (3.5-5.1); TOTAL BILIRUBIN 5.1 mg/dL (<0.1-1.0); TOTAL PROTEIN 4.6 g/dL (6.4-8.2)
[2016-07-31 19:12] LABS: A/G RATIO 0.9 (0.7-1.7); ALBUMIN 1.9 g/dL (2.9-4.4); ALPHA 1 0.3 g/dL (0.0-0.4); ALPHA 2 0.6 g/dL (0.4-1.0); BETA 0.6 g/dL (0.7-1.3); GAMMA 0.7 g/dL (0.4-1.8); M-SPIKE Not Observed g/dL (Not Observed)
[2016-08-01 04:00] VITALS: BP 102/62
[2016-08-01 04:42] LABS: HEMOGLOBIN 9.3 gm/dL (14.0-18.0)
[2016-08-01 04:44] LABS: HEMATOCRIT 26.8 % (42.0-52.0); MCH 36.1 pg (26.0-34.0); MCHC 34.6 g/dL (28.0-37.0); MCV 104.5 fL (80.0-100.0); RBC 2.57 mil/uL (4.50-6.00); RDW 25.1 % (10.5-14.5); WBC 5.8 thou/uL (4.0-11.0)
[2016-08-01 05:36] LABS: ALBUMIN 1.5 g/dL (3.4-5.0); CREATININE 1.3 mg/dL (0.6-1.3); PHOSPHORUS 2.3 mg/dL (2.5-4.9); POTASSIUM 3.6 mmol/L (3.5-5.1)
[2016-08-01 08:00] VITALS: BP 97/67
[2016-08-01 12:00] VITALS: BP 103/62
[2016-08-01 15:07] LABS: CERULOPLASMIN 17.6 mg/dL (16.0-31.0)
[2016-08-01 15:40] VITALS: BP 105/69
[2016-08-01 20:29] VITALS: BP 101/71
[2016-08-02 04:22] VITALS: BP 108/72
[2016-08-02 06:17] LABS: HEMOGLOBIN 8.5 gm/dL (14.0-18.0); MCHC 33.5 g/dL (28.0-37.0); RBC 2.4 mil/uL (4.50-6.00); WBC 5.1 thou/uL (4.0-11.0)
[2016-08-02 06:18] LABS: HEMATOCRIT 25.3 % (42.0-52.0); MCH 35.4 pg (26.0-34.0); MCV 105.7 fL (80.0-100.0); RDW 24.7 % (10.5-14.5)
[2016-08-02 06:28] LABS: ALBUMIN 1.4 g/dL (3.4-5.0); CALCIUM 6.9 mg/dL (8.5-10.1); CREATININE 1.2 mg/dL (0.6-1.3); MAGNESIUM 1.6 mg/dL (1.8-2.4); PHOSPHORUS 2.4 mg/dL (2.5-4.9); POTASSIUM 3.6 mmol/L (3.5-5.1); TOTAL BILIRUBIN 4.9 mg/dL (<0.1-1.0)
[2016-08-02 06:58] LABS: TOTAL PROTEIN 4.5 g/dL (6.4-8.2)
[2016-08-02 08:00] VITALS: BP 124/80
[2016-08-02 11:30] VITALS: BP 88/54
[2016-08-02 15:30] VITALS: BP 103/67
[2016-08-02 20:45] VITALS: BP 120/75
[2016-08-02 23:59] VITALS: BP 119/77
[2016-08-03 03:47] VITALS: BP 94/60
[2016-08-03 08:15] VITALS: BP 116/75
[2016-08-03 12:00] VITALS: BP 90/63
[2016-08-03 16:55] VITALS: BP 134/77
[2016-08-03 20:09] VITALS: BP 109/74
[2016-08-04 04:51] VITALS: BP 110/62
[2016-08-04 04:51] LABS: HEMATOCRIT 24.6 % (42.0-52.0); HEMOGLOBIN 8.4 gm/dL (14.0-18.0); MCH 35.9 pg (26.0-34.0); MCHC 34.1 g/dL (28.0-37.0); MCV 105.4 fL (80.0-100.0); RBC 2.33 mil/uL (4.50-6.00); RDW 23.7 % (10.5-14.5); WBC 6.5 thou/uL (4.0-11.0)
[2016-08-04 05:16] LABS: ALBUMIN 1.4 g/dL (3.4-5.0); CALCIUM 7.4 mg/dL (8.5-10.1); CREATININE 1.2 mg/dL (0.6-1.3); POTASSIUM 3.9 mmol/L (3.5-5.1); TOTAL BILIRUBIN 4.5 mg/dL (<0.1-1.0)
[2016-08-04 05:39] LABS: TOTAL PROTEIN 4.7 g/dL (6.4-8.2)
[2016-08-04 08:00] VITALS: BP 126/72
[2016-08-04 10:45] VITALS: BP 114/76
[2016-08-04 15:09] VITALS: BP 114/76
[2016-08-04] MEDS ORDERED: NEXIUM40 MG PO (16:38)
[2016-08-04] MEDS ORDERED: BACTRIM DS TAB1 EACH PO (16:38)
[2016-08-04] MEDS ORDERED: MAGNESIUM OXID200 MG PO (16:38)
[2016-08-04] MEDS ORDERED: PAIN & FEVER325 MG PO (16:38)
[2016-08-04] MEDS ORDERED: ATIVAN0.5 MG PO (16:38)
[2016-08-04] MEDS ORDERED: VITAMIN B-1100 M2 PO (16:38)
[2016-08-04] MEDS ORDERED: MIDODRINE HCL 55 M1 PO (16:38)
[2016-08-04] MEDS ORDERED: SPIRONOLACTONE25 M1 PO (16:38)
[2016-08-04] MEDS ORDERED: VENTOLIN HFA 1818 GM INH (16:38)
[2016-08-04] MEDS ORDERED: LEVOTHYROXIN0.025 MG PO (16:38)
[2016-08-04] MEDS ORDERED: NICOTINE TRANSD21 M1 TRANSDERM (16:38)
[2016-08-04 17:01] VITALS: BP 114/76
[2016-08-04 18:16] VITALS: BP 114/76
== END 2016-08-04 18:16 | disposition home health service (06) | DRG 871 ==
LOC: 2N 17:35 → ICU 17:35 → 2N 23:14 → ICU 07-29 01:39 → 2N 07-31 17:12
PROVIDERS: Internal Medicine; Internal Medicine Cardiovascular Disease; Internal Medicine Gastroenterology; Internal Medicine Hematology & Oncology; Internal Medicine Nephrology
PROC: B543ZZA Ultrasonography of Right Jugular Veins, Guidance (ICD-10-PCS; principal; 2016-07-29)
PROC: 05HM33Z Insertion of Infusion Device into Right Internal Jugular Vein, Percutaneous Approach (ICD-10-PCS; principal; 2016-07-29)
PROC: 30233N1 Transfusion of Nonautologous Red Blood Cells into Peripheral Vein, Percutaneous Approach (ICD-10-PCS; 2016-07-30)
DX: A41.9 Sepsis, unspecified organism (principal); R65.21 Severe sepsis with septic shock; G92 Toxic encephalopathy; N17.9 Acute kidney failure, unspecified; E87.2 Acidosis; B17.9 Acute viral hepatitis, unspecified; N39.0 Urinary tract infection, site not specified; E46 Unspecified protein-calorie malnutrition; I42.8 Other cardiomyopathies; D61.818 Other pancytopenia; F10.239 Alcohol dependence with withdrawal, unspecified; K70.10 Alcoholic hepatitis without ascites; E86.0 Dehydration; J44.9 Chronic obstructive pulmonary disease, unspecified; K70.9 Alcoholic liver disease, unspecified; I71.4 Abdominal aortic aneurysm, without rupture; Z95.1 Presence of aortocoronary bypass graft; E03.9 Hypothyroidism, unspecified; N18.9 Chronic kidney disease, unspecified; Z68.24 Body mass index [BMI] 24.0-24.9, adult; I25.10 Atherosclerotic heart disease of native coronary artery without angina pectoris; R41.0 Disorientation, unspecified; I12.9 Hypertensive chronic kidney disease with stage 1 through stage 4 chronic kidney disease, or unspecified chronic kidney disease; F17.210 Nicotine dependence, cigarettes, uncomplicated; E86.9 Volume depletion, unspecified; I95.9 Hypotension, unspecified; D75.9 Disease of blood and blood-forming organs, unspecified; E78.5 Hyperlipidemia, unspecified; M19.90 Unspecified osteoarthritis, unspecified site; F32.9 Major depressive disorder, single episode, unspecified; Z96.611 Presence of right artificial shoulder joint; R27.8 Other lack of coordination; F41.9 Anxiety disorder, unspecified; G47.00 Insomnia, unspecified; K21.9 Gastro-esophageal reflux disease without esophagitis; E83.42 Hypomagnesemia; E83.39 Other disorders of phosphorus metabolism; I73.9 Peripheral vascular disease, unspecified; E78.00 Pure hypercholesterolemia, unspecified; B96.20 Unspecified Escherichia coli [E. coli] as the cause of diseases classified elsewhere; Z98.84 Bariatric surgery status; Z86.718 Personal history of other venous thrombosis and embolism; Z88.8 Allergy status to other drugs, medicaments and biological substances; Z79.899 Other long term (current) drug therapy; Z88.6 Allergy status to analgesic agent; Z87.11 Personal history of peptic ulcer disease; Z95.820 Peripheral vascular angioplasty status with implants and grafts; Z82.49 Family history of ischemic heart disease and other diseases of the circulatory system
CPT/HCPCS: 10078; 10081; 85076

== ENCOUNTER → 2016-11-18 | Outpatient (CLI) | payer BC ==
[~2016-11-18] VITALS: Ht 177.8 cm; Wt 54.4 kg
[~2016-11-18] MED LIST changes: +ATIVAN0.5 MG PO; +BACTRIM DS TAB1 EACH PO; +CARAFATE 1 GM TA1 G1 PO; +IBUPROFEN 800800 M1 PO; +LEVOTHYROXIN0.025 MG PO; +MAGOX 400400 MG PO; +MIDODRINE HCL 55 M1 PO; +NICOTINE TRANSD21 M1 TRANSDERM; +PAIN & FEVER325 MG PO; +PRENATAL VITAM1 EAC8 PO; +SPIRONOLACTONE25 M1 PO; +SPIRONOLACTONE25 MG PO; +VITAMIN B COMP1 EACH PO; +VITAMIN B-1100 M2 PO
--- NOTE | ~2016-11-18 | S ---
[facility] [address] SURGICAL PATH RPT PROCEDURE Name: CARLOS STEARNS JR Room #: REG [facility].#: [id number] Admission: 11/18/16 Date of : 56 Discharge: Report #: [id number] Path Case #: [id number] PATHOLOGY REPORT COLLECTION DATE: 11/18/2016 RECEIVED DATE: 11/18/2016 SUBMITTING PHYS: Dr. Tim Driver OTHER PHYS: Dr. Romeo Portillo SPECIMEN(S) RECEIVED: A.Bx of small bowel B.Antral bx C.Polyp at spleenic flexure D.Large polyp at spleenic flexure * * * * * * * * * * * * FINAL DIAGNOSIS: A. Small intestinal mucosa "biopsy small bowel": - No obvious diagnostic changes. - There is no evidence of acute cryptitis, granulomas, adenomatous change or malignancy. - Diagnostic features of sprue are not seen. B. Gastric biopsy, antrum: - Mild chronic reactive gastropathy. - The immunohistochemical stain for Helicobacter pylori is negative. C. Colonic mucosa "polyp at splenic flexure": - Fragments of tubular adenoma. - There is no evidence of high grade dysplasia or malignancy. D. Colonic mucosa "large polyp at splenic flexure": - Fragments of tubular adenoma. - There is no evidence of high grade dysplasia or malignancy. (SHA:hilda; 11/20/2016) PATHOLOGIST: Jerrod Emerson M.D. REPORT ELECTRONICALLY SIGNED BY: Jerrod Emerson M.D. DATE/TIME: 11/20/2016 14:15 * * * * * * * * * * * * GROSS PATHOLOGY: A. Received in formalin labeled "Carlos Stearns Jr, BX at small bowel rule out celiac," are 3 segments of dc soft tissue measuring 0.9 x 0.2 x 0.2 cm in aggregate dimensions and ranging from 0.2 to 0.5 cm in maximum dimension. The specimen is submitted entirely in cassette A1. B. Received in formalin labeled " Carlos Stearns Jr antral BX," are 2 segments of dc soft tissue measuring 0.6 x 0.3 x 0.[address] [address] SURGICAL PATH RPT PROCEDURE Name: CARLOS STEARNS JR Room #: REG [facility]#: [id number] Admission: 11/18/16 Date of : 56 Discharge: Report #: [id number] Path Case #: [id number] aggregate dimensions and ranging from 0.2 to 0.4 cm in maximum dimension. The specimen is submitted entirely in cassette B1. C. Received in formalin labeled " Carlos Stearns Jr, BX at splenic flexure polyp," are more than 10 segments of dc soft tissue measuring 1.7 x 0.6 x 0.2 cm in aggregate dimensions and ranging from less than 0.1 to 0.5 cm in maximum dimension. The specimen is submitted entirely in cassette C1. D. Received in formalin labeled " Carlos Stearns Jr, BX of large splenic flexure polyp," are more than 10 segments of dc soft tissue measuring 1.9 x 0.6 x 0.2 cm in aggregate dimensions and ranging from less than 0.1 to 0.4 cm in maximum dimension. The specimen is submitted entirely in cassette D1. (ANAHI; 11/19/2016) CLINICAL HISTORY: Change in bowel habits, abdominal pain, weight loss INITIAL CPT CODE(S): A; 03103 B; 88353, 54992 C; 34450 D; 29675 Professional services performed by [facility] at [facility] [address], [place] [address] Technical services performed by [facility] at [address] [place] [address], [address], [place] [address]. [facility] [address] [place] [address] PHONE: [phone] DIRECTOR: Ulisses Yusuf M.D. * * * END OF REPORT * * *
== END | disposition home or self-care (01) ==
LOC: GI 07:31
DX: K59.00 Constipation, unspecified (principal); R63.4 Abnormal weight loss; D12.3 Benign neoplasm of transverse colon; K57.30 Diverticulosis of large intestine without perforation or abscess without bleeding; K64.8 Other hemorrhoids; K22.2 Esophageal obstruction; K44.9 Diaphragmatic hernia without obstruction or gangrene; K31.4 Gastric diverticulum
CPT/HCPCS: 62110; 62900

== ENCOUNTER → 2017-10-02 | Outpatient (CLI) | payer BC ==
[2017-10-02 09:35] LABS: CREATININE 1.4 mg/dL (0.7-1.3)
== END ==
LOC: CAT 09:04
PROVIDERS: Nuclear Medicine Nuclear Cardiology
DX: I71.4 Abdominal aortic aneurysm, without rupture (principal); Z95.828 Presence of other vascular implants and grafts

== ENCOUNTER 2019-10-20 10:32 | Inpatient (IN) | payer OTHER ==
[2019-10-20] VITALS (21 sets, daily range): BP systolic 84–107; BP diastolic 43–74
[~2019-10-20] VITALS: Ht 170.2 cm; Wt 59.4 kg
[2019-10-20 11:09] LABS: ABSOLUTE NEUTROPHILS 10.7 thou/uL (1.4-8.2); BASOPHILS 0.3 % (0.0-2.0); EOSINOPHILS 0.2 % (0.0-3.0); HEMATOCRIT 31.4 % (42.0-52.0); HEMOGLOBIN 10.6 gm/dL (14.0-18.0); LYMPHOCYTES 6.7 % (24.0-44.0); MCH 34.1 pg (26.0-34.0); MCHC 33.7 g/dL (28.0-37.0); MCV 101.3 fL (80.0-100.0); MONOCYTES 5.1 % (1.0-8.0); POLYS 87.7 % (36.0-66.0); RDW 14.5 % (10.5-14.5); WBC 12.2 thou/uL (4.0-11.0)
[2019-10-20 11:12] LABS: ANION GAP 14 mmol/L (7-16); BUN 39 mg/dL (7-18); CHLORIDE 95 mmol/L (98-107); CO2 20 mmol/L (21-32); CREATININE 5.2 mg/dL (0.7-1.3); GLUCOSE 50 mg/dL (74-106); POTASSIUM 3.9 mmol/L (3.5-5.1); SODIUM 129 mmol/L (136-145)
[2019-10-20 11:22] LABS: ALBUMIN 1.4 g/dL (3.4-5.0); MAGNESIUM 1.3 mg/dL (1.8-2.4); SGOT 65 U/L (15-37); SGPT 25 U/L (30-65); TOTAL BILIRUBIN 2.4 mg/dL (0.2-1.0); TOTAL PROTEIN 5.6 g/dL (6.4-8.2); TROPONIN-I <0.06 ng/mL (<0.06)
[2019-10-20] MEDS ORDERED: BUPROPION HCL100 MG PO (11:48)
[2019-10-20] MEDS ORDERED: ZETIA10 MG PO (11:49)
[2019-10-20] MEDS ORDERED: ATENOLOL 50MG T50 MG PO (11:49)
[2019-10-20] MEDS ORDERED: QUETIAPINE FUMA50 M1 PO (11:55)
[2019-10-20] MEDS ORDERED: KLOR-CON 10 ER10 MEQ PO (11:56)
[2019-10-20 12:26] LABS: INR 1.3; PROTIME 13.3 Seconds (9.3-11.4)
[2019-10-20 13:25] LABS: URINE BILIRUBIN 2+ (Negative); URINE BLOOD NEGATIVE (Negative); URINE CLARITY CLEAR; URINE COLOR BROWN; URINE GLUCOSE-RANDOM* TRACE (Negative); URINE KETONES TRACE (Negative); URINE LEUKOCYTES-REFLEX NEGATIVE (Negative); URINE PROTEIN (DIPSTICK) 1+ (Negative); URINE SPECIFIC GRAVITY >= 1.030 (1.005-1.035)
[2019-10-20 13:26] LABS: URINE CREATININE-RANDOM* 231.6 mg/dL; URINE NITRITE-REFLEX POSITIVE (Negative)
[2019-10-20 13:28] LABS: PLATELET COUNT 94 thou/uL (150-400)
[2019-10-20 13:28] LABS: ICTOTEST (BILI CONFIRMATORY) Positive (Negative)
[2019-10-20 13:30] LABS: BE(vivo) -6.6 mmol/L (-2 to +3); HCO3 16.6 mmol/L (22.0-26.0); PCO2 26.4 mmHg (35.0-45.0); PO2 74.3 mmHg (80.0-100.0); pH 7.417 (7.360-7.450); sO2 95.4 % (92.0-98.0)
[2019-10-20 13:47] LABS: BACTERIA-REFLEX 1-9 Few /HPF (None Seen); CRYSTALS None Seen /LPF (None Seen); HYALINE CASTS 0-3 Few /LPF (None Seen); SQUAMOUS 0-3 Few /LPF (0-3); URINE RBC None Seen /HPF (0-2); URINE WBC-REFLEX None Seen /HPF (0-5)
--- NOTE | 2019-10-20 13:51 | 2DMMODE ---
[facility] [place] [address] 2 D/M-MODE ECHOCARDIOGRAM Name: KAREY DAS JR Room #: 170-8 ADM IN M.R.#: [id number] Admission: 10/20/19 Attend Phys: Efra Louise MD Discharge: Date of : 56 Report #: [id number] THIS REPORT FOR: cc: Romeo Portillo MD, Stanley P. MD Park, Jin S. MD ~ APPROVED REPORT Study performed: 10/20/2019 13:15:39 EXAM: Comprehensive 2D, Doppler, and color-flow Echocardiogram Patient Location: ER Status: routine BSA: 1.68 HR: 55 bpm Rhythm: NSR Other Information Study Quality: Adequate/Patient flat on back in distress. Indications Dyspnea Hx: CABG, COPD, HTN, HLP. 2D Dimensions RVDd: 31.12 mm IVSd: 9.62 (7-11mm) LVOT Diam: 23.68 (18-24mm) LVDd: 36.71 mm PWd: 8.68 (7-11mm) LVDs: 26.87 (25-40mm) Aortic Root: 49.05 mm Volumes Left Atrial Volume (Systole) Single Plane 4CH: 28.94 mL Single Plane 2CH: 44.10 mL LA ESV Index: 22.00 mL/m2 Aortic Valve AoV Peak Lg.: 1.03 m/s AO Peak Gr.: 4.20 mmHg LVOT Max P.56 mmHg LVOT Max V: 0.94 m/s [facility] [address] [place] [address] 2 D/M-MODE ECHOCARDIOGRAM Name: KAREY DAS Room #: 170-8 ADM IN M.R.#: [id number] Admission: 10/20/19 Attend Phys: Efra Louise MD Discharge: Date of : 56 Report #: [id number] [id number] Vmax: 4.05 cm2 Mitral Valve E/A Ratio: 0.8 MV Decel. Time: 269.30 ms MV E Max Lg.: 0.70 m/s MV A Lg.: 0.84 m/s MV PHT: 78.10 ms Pulmonary Valve PV Peak Lg.: 0.82 m/s PV Peak Gr.: 2.68 mmHg Tricuspid Valve TR Peak Lg.: 2.25 m/s TR Peak Gr.: 20.25 mmHg Left Ventricle The left ventricle is normal size. Mild basal septal hypertrophy is present. Left ventricular systolic function is normal. LVEF is 55-60%. Mild diastolic dysfunction is present (impaired relaxation pattern). Right Ventricle The right ventricle is normal size. The right ventricular systolic function is normal. Atria The left atrium size is normal. The right atrium size is normal. Aortic Valve The aortic valve is normal in structure. Mild aortic regurgitation. There is no aortic valvular stenosis. Mitral Valve The mitral valve is normal in structure. Mild mitral regurgitation. No evidence of mitral valve stenosis. Tricuspid Valve The tricuspid valve is normal in structure. Trace to mild tricuspid regurgitation. Estimated PAP is 20mmHg plus the RAP. Pulmonic Valve Pulmonic valve is not well visualized. [employer] [facility] [address] [address] 2 D/M-MODE ECHOCARDIOGRAM Name: KAREY DAS Room #: 170-8 ADM IN M.R.#: [id number] Admission: 10/20/19 Attend Phys: Efra Louise MD Discharge: Date of : 56 Report #: [id number] Aortic root is moderately dilated at 4.9cm. Ascending aorta is not well visualized. IVC is not well visualized. Pericardium There is no pericardial effusion. <Conclusion> The left ventricle is normal size. Left ventricular systolic function is normal. Mild diastolic dysfunction is present (impaired relaxation pattern). The right ventricle is normal size. The left atrium size is normal. Mild aortic regurgitation. Mild mitral regurgitation. Trace to mild tricuspid regurgitation. Estimated PAP is 20mmHg plus the RAP. <ELECTRONICALLY SIGNED> By: Stan Miles MD 10/20/19 1350 1350 1350 Stan Miles MD /INF
--- NOTE | 2019-10-20 17:05 | NUR ---
ATTEMPTED TO CALL REPORT TO PAULETTE THOMAS - WAS TOLD THAT RN IS CURRENTLY ON THE PHONE AND HAS BEEN FOR AWHILE BUT IS UNSURE HOW MUCH LONGER SHE WILL BE UNAVAILABLE
--- NOTE | 2019-10-20 17:12 | NUR ---
ATTEMPTED TO CALL REPORT AND WAS TRANSFERRED TO A NUMBER THAT CONTINUED TO RING FOR ~3MIN WITH NO ANSWER
--- NOTE | 2019-10-20 20:14 | NUR ---
1740- Patient arrived to ICU, where ICU chef greeted patient. She placed him on cardiac nurse specialist, settled him into bed, obtained temperature. Nurse entered room and performed assessment. This was documented. Plan of care is to monitor urine output and vital signs.
[2019-10-21] VITALS (57 sets, daily range): BP systolic 79–122; BP diastolic 47–70
[2019-10-21 05:18] LABS: ALBUMIN 1.2 g/dL (3.4-5.0); CALCIUM 6.6 mg/dL (8.5-10.1); CREATININE 5.4 mg/dL (0.7-1.3); POTASSIUM 4.1 mmol/L (3.5-5.1)
--- NOTE | 2019-10-21 07:44 | NUR ---
Assumed pt care last night at 1900. Pt fairly oriented at that time, but has quickly become increasingly confused through the night and has not slept at all. Home dose of Seroquel restarted with no effect. Conner catheter had 50 ml urine out with pt stating he had urge to void. Irrigated conner with no return of irrigant and bladder scanner showed about 500 ml. Pt taken to CT scan per provider's order and showed no urine in the bladder. Conner left out at this time. Ascites possibly scewed bladder scan results?? Pt remains on RA. Moves self constantly in bed and pulls on lines/monitors. Bed alarm activated for patient safety. Pt not progressing towards goals at this time.
--- NOTE | 2019-10-21 12:30 | NUR ---
ASSUMED CARE AT 0700, ASSESSMENT AND VITAL SIGNS COMPLETED PER ICU PROTOCOL. DR. HEARD PAGED AND NOTIFIED OF HYPOTENSION, NEW ORDERS RECEIVED AND EXECUTED. PLAN OF CARE DISCUSSED WITH DR. HEARD, RN WILL CONTINUE TO MONITOR.
--- NOTE | 2019-10-21 15:15 | NUR ---
VAT CONSULTED FOR A CL FOR THIS PT WITH ESLD AND A CREAT OVER 5 NEEDING PRESSORS. PLACED A 6FRTL IJ AND AFTER CXR PULLED LINE BACK 3CM AND RELEASED TO RN FOR USE. PLEASE SEE INSERTION NI FOR DETAILS
--- NOTE | 2019-10-21 15:16 | NUR ---
INITIAL ASSESSMENT: Received consult. SW reviewed chart and spoke with attending physician. Pt was admitted from home due to ARF. Pt with hx of end stage liver disease. Per chart, pt lives at home with his in [place], [place]. Pt has cane, walker and ramp into their home. No steps that pt will need to navigate. Pt has used [facility] in the past. Pt's PCP is Dr. Portillo. Pt's condition to be evaluated over the weekend to determine plan of care. SW is following to assist as needed with discharge planning.
[2019-10-22] VITALS (75 sets, daily range): BP systolic 73–128; BP diastolic 37–77
--- NOTE | 2019-10-22 06:17 | NUR ---
NO NOTED UOP OVER NIGHT. X2 BLADDER SCANS OVERNIGHT. ONE 577ML, SECOND ONE IN AM OF 438ML. SPOKE WITH DR. GUTIERREZ AND HE STATED NOT TO STRAIGHT CATH THE PT THIS MORNING. HE WILL TRY TO SPEAK TO PT TODAY ABOUT HIS STATUS. PT IS NOT MAKING PROGRESS TOWARDS GOAL. PT DENIED ANY NEED TO VOID OVERNIGHT.
[2019-10-22 06:19] LABS: ALBUMIN 2.5 g/dL (3.4-5.0); CALCIUM 6.6 mg/dL (8.5-10.1); CREATININE 5.5 mg/dL (0.7-1.3)
--- NOTE | 2019-10-22 09:17 | NUR ---
ASSUMED CARE AT 0700, ASSESSMENT AND VITAL SIGNS COMPLETED PER ICU PROTOCOL. DR. HEARD PAGED AND NOTIFIED OF THE INCREASED DEMAND FOR BLOOD PRESSURE SUPPORT. DR. HEARD VOICED HE'S GOING TO DISCUSS COMFORT CARE WITH DR. ARNOLD AND FAMILY. RN WILL FOLLOW PLAN OF CARE AND MONITOR. RN CALLED PT'S SPOUSE, CHIDI, PROVIDED UPDATE ON PT'S CONDITION.
[2019-10-22 10:25] LABS: BASOPHILS 0.6 % (0.0-2.0); EOSINOPHILS 0.2 % (0.0-3.0); HEMATOCRIT 24.6 % (42.0-52.0); LYMPHOCYTES 7.1 % (24.0-44.0); MCH 34.7 pg (26.0-34.0); MCHC 33.7 g/dL (28.0-37.0); MCV 103.1 fL (80.0-100.0); MONOCYTES 4.3 % (1.0-8.0); PLATELET COUNT 75 thou/uL (150-400); POLYS 87.8 % (36.0-66.0); RBC 2.39 mil/uL (4.50-6.00); RDW 15.1 % (10.5-14.5); WBC 10.3 thou/uL (4.0-11.0)
[2019-10-22 10:35] LABS: HEMOGLOBIN 8.3 gm/dL (14.0-18.0)
[2019-10-22 10:54] LABS: LARGE PLATELETS FEW; MACROCYTES 1+
--- NOTE | 2019-10-22 11:43 | EKG ---
[facility] [place] [address] ELECTROCARDIOGRAM REPORT Name: KAREY DAS JR Room #: 242-P ADM IN M.R.#: [id number] Admission: 10/20/19 Attend Phys: Efra Louise MD Discharge: Date of : 56 Report #: [id number] THIS REPORT FOR: cc: Romeo Portillo MD, Stanley P. MD Couchonnal, Luis F. MD ~ THIS REPORT FOR: //name// [facility] ED Test Date: 2019-10-20 Test Time: 10:59:08 Pat Name: KAREY DAS Department: Room: [facility] Gender: M [employer] Installer: MARILUZ : 1960 Requested By: Ricardo Ochoa Order Number: [id number] : Price Botello Measurements Intervals Temple Rate: 82 P: 34 CA: 161 QRS: 26 QRSD: 91 T: 60 QT: 407 QTc: 476 Interpretive Statements Sinus rhythm Low voltage, extremity leads Abnormal R-wave progression, early transition Borderline prolonged QT interval Compared to ECG 11/06/2015 21:01:57 Low QRS voltage now present T-wave abnormality no longer present Possible ischemia no longer present Electronically Signed On 10-22-2019 11:42:32 CDT by Price Botello [email or web address] <ELECTRONICALLY SIGNED> By: Price Botello MD 10/22/19 1142 1059 1059 Price Botello MD /EPI
--- NOTE | 2019-10-22 21:05 | NUR ---
PT ANXIOUS, FEELS INCREASINGLY SOA. CHANGED TO HIGH FLOW CANULA AT 10 LITERS; NURSE PRACTIONER NOTIFIED AND HYDOXYZINE 25 MG PO ORDERED X1 FOR ANXIETY.
--- NOTE | 2019-10-22 23:54 | NUR ---
Pt coded at 2329, see code blue record. Pt now intubated with #7.5 ETT on vent at Tv 550, FiO2 100%, AC 16, peep 5. Monitor sinus tachycardia. Dr. New notified. Dr. Nicholson consulted.
[2019-10-23] VITALS (15 sets, daily range): BP systolic 71–107; BP diastolic 37–74
--- NOTE | 2019-10-23 01:05 | NUR ---
Pt cold, clammy, on levophed at 30 mcg/min Levophed. Unable to get O2 sat. Pt mas, non-responsive. Dr. Nicholson spoke with pt's . She agrees to DNR status and is considering comfort care after she sees him.
[2019-10-23 01:11] LABS: BE(vivo) -24.2 mmol/L (-2 to +3); HCO3 10.4 mmol/L (22.0-26.0); PCO2 76.5 mmHg (35.0-45.0); PO2 53.3 mmHg (80.0-100.0); pH 6.751 (7.360-7.450); sO2 52.5 % (92.0-98.0)
--- NOTE | 2019-10-23 01:40 | NUR ---
ASSUMED PT CARE AT 1900. ON 3L NC AND 20MCG OF LEVOPHED. PT FULL CODE AT THIS TIME. PT STATED THAT HE WAS HAVING TROUBLE BREATHING SO HIS O2 WAS BUMPED TO 5L. AT 2099. PT'S 02 SAT WAS AROUND 85 SO PT WAS PUT ON HIGH FLOW NC AT 10L. PT STATED FEELING A LITTLE BETTER. AT 223. PT STATED HE WAS THIRSTY AND WAS HAVING BACK PAIN, TRAMADOL GIVEN. LEVO TURNED DOWN TO 15MCG. PT APPEARED RESTLESS, STATED THAT HE WAS "HAVING A HARD TIME BREATHING, AND HE WAS FEELING SMOTHERED" PT REQUESTED TO SIT IN THE CHAIR. STATED HE SAT IN THE CHAIR DURING THE DAY AND HE FELT BETTER. RN ASSISTED PT TO THE CHAIR. PT REMIANED RESTLESS, WITH O2 SAT AROUND 84. PT WAS IN THE CHAIR FOR ABOUT 28 MINUTES WHEN HE GOT BRADYCARDIC WITH HR DOWN TO 28 AFTER WHICH HE WENT ASYTOLE AT 2327. AT 2328 UPON ASSESSMENT PT WAS PULSLESS AND UNRESPONSIVE, PT WAS TRANSFERED TO THE BED FROM THE CHAIR CODE WAS CALLED AND CPR WAS INITIATED. CODE LASTED ABOUT 10 MINUTES AND WE GOT A PULSE. PT INTUBATED BY ER DOC & OGT PLACED BY RN PT REMAINED UNRESPONSIVE, WITH PUPILS 5CM AND UNREACTIVE POST INTBATION.
--- NOTE | 2019-10-23 01:43 | NUR ---
Pt care assumed at midnight. Pt in enhanced precautions for covid rule out. Pt remains non-responsive on vent. MTM notified per protocol.
--- NOTE | 2019-10-23 02:12 | NUR ---
RN SPOKE TO DR MARTIN AT 8504. HE ORDERED CXR, ABG, CBC AND CMP AND ASKED THAT THE PT'S FAMILY BE NOTIFIED. PT'S CALLED AT 0055 AND UPDATED ABOUT PT'S STATUS POST CODE. ON THE FLOOR AT THIS TIME SO HE ALSO SPOKE TO THE PT'S . PER DR MARTIN, PT'S WAS AGREEABLE TO DNR STATUS, STATING THAT SHE WOULD COME UP TO SEE PT ALONG WITH THIER DAUGHTER. HOUSE SUP NOTIFIED OF PT'S UPCOMING VISIT.
--- NOTE | 2019-10-23 05:02 | NUR ---
0230: Pt's and daughters here to see pt; pt in enhanced precautions due to pending covid test, so family viewed pt through glass window. stated that pt would not want to continue like this and stated she had talked with Dr. Nicholson earlier about placing pt on comfort care. 0307: Pt extubated at 0300 and at 0307.
--- NOTE | 2019-10-28 15:17 | HC ---
[facility] [place] [address] CONSULTATION Name: KAREY DAS JR Room #: 242-P [facility] IN M.R.#: [id number] Admission: 10/20/19 Attend Phys: Efra Louise MD Discharge: 10/23/19 Date of : 56 Report #: [id number] THIS REPORT FOR: cc: Romeo Portillo MD, Stanley P. MD Al-Absi, Ahmed I. MD ~ CC: Efra Portillo DATE OF SERVICE: 10/21/2019 REASON FOR CONSULTATION: Elevated creatinine. REASON FOR PRESENTATION: Weakness, fatigue and confusion. HISTORY OF PRESENT ILLNESS: This is obtained from the medical chart. The patient is very confused and not able to provide me with history. He carries a diagnosis of so many comorbid conditions including and not limited to hospitalization back in 2017 for acute kidney injury, hypotension. We have evaluated this patient back in 2017. He has history of hypertension; however, he presented with the above symptoms and was found to be hypotensive. Creatinine on presentation was 5.4. When we evaluated the patient back in 2017, his creatinine peaked at 3. The patient is currently very confused, lethargic, hypotensive. He is not able to provide me with any details regarding his kidney issues. He has an abdominal aortic aneurysm status post stent graft, coronary artery disease with CABG. He is also known to have alcohol abuse. The patient was admitted to the Intensive Care Unit and I was asked to assist with the management of his acute kidney injury. I am not able to obtain any further details. PAST MEDICAL HISTORY: 1. Peptic ulcer disease. 2. Alcohol abuse. 3. History of acute kidney injury. 4. Stent graft for his aneurysm. 5. Coronary artery disease, post coronary artery bypass graft. 6. Cardiomyopathy. 7. Anxiety. 8. Depression. 9. Insomnia. 10. Hyperlipidemia. 11. Diastolic heart failure. ALLERGIES: Numerous including CHANTIX, CRESTOR. SOCIAL HISTORY: Alcohol abuse. [facility] [address] [place] [address] CONSULTATION Name: KAREY DAS Room #: 242-P [facility] IN [facility].#: [id number] Admission: 10/20/19 Attend Phys: Efra Louise MD Discharge: 10/23/19 Date of : 56 Report #: [id number] REVIEW OF SYSTEMS: Unobtainable given the patient's current mental status. MEDICATIONS: 1. Atorvastatin. 2. Spironolactone. 3. Ibuprofen. 4. Naproxen. 5. Potassium. 6. Levothyroxine. PHYSICAL EXAMINATION: GENERAL: Very confused, lethargic. VITAL SIGNS: Blood pressure is 88/60. HEAD AND NECK: Cachectic and emaciated. CHEST: Decreased air entry bilaterally. CARDIOVASCULAR: No rub. ABDOMEN: Soft with significant amount of ascites. EXTREMITIES: Lower extremities, significant bruising. LABORATORY VALUES: White blood cell count 12.2. Sodium 130, chloride 97, carbon dioxide 20, BUN is 40, creatinine is 5.4, calcium is 6.6, ALT is 65, albumin is 1.2. Urine is with positive nitrite. Cultures are pending. Chest x-ray, no acute process. Cardiac echo, mild diastolic dysfunction. ASSESSMENT AND PLAN: 1. Acute kidney injury in a patient with known alcoholic liver disease, highly suggestive of hepatorenal syndrome. 2. Appropriate workup will be initiated. 3. Initiate on midodrine, octreotide, and albumin. 4. Discontinue IV fluid. 5. Continue to monitor renal function. 6. Very poor prognosis. Not a candidate for any heroic or invasive measures from our side. We will see where his numbers are going to settle. <ELECTRONICALLY SIGNED> By: Idania New MD 10/28/19 [id number] [id number] Idania New MD /nt
== END 2019-10-23 03:07 | DRG 682 ==
LOC: ER 10:32 → EROBS 12:24 → ICU 12:24
PROVIDERS: Emergency Medicine; Hospitalist; ADMIT Internal Medicine; ATTEND Internal Medicine
PROC: 02H633Z Insertion of Infusion Device into Right Atrium, Percutaneous Approach (ICD-10-PCS; principal; 2019-10-21)
PROC: 0BH17EZ Insertion of Endotracheal Airway into Trachea, Via Natural or Artificial Opening (ICD-10-PCS; 2019-10-23)
PROC: 5A1935Z Respiratory Ventilation, Less than 24 Consecutive Hours (ICD-10-PCS; 2019-10-23)
PROC: 5A12012 Performance of Cardiac Output, Single, Manual (ICD-10-PCS; 2019-10-23)
DX: N17.9 Acute kidney failure, unspecified (principal); G92 Toxic encephalopathy; E43 Unspecified severe protein-calorie malnutrition; K76.7 Hepatorenal syndrome; J96.01 Acute respiratory failure with hypoxia; E87.1 Hypo-osmolality and hyponatremia; I42.9 Cardiomyopathy, unspecified; I50.32 Chronic diastolic (congestive) heart failure; I13.2 Hypertensive heart and chronic kidney disease with heart failure and with stage 5 chronic kidney disease, or end stage renal disease; K21.9 Gastro-esophageal reflux disease without esophagitis; E78.5 Hyperlipidemia, unspecified; I46.9 Cardiac arrest, cause unspecified; F41.9 Anxiety disorder, unspecified; E03.9 Hypothyroidism, unspecified; F32.9 Major depressive disorder, single episode, unspecified; I95.9 Hypotension, unspecified; E83.42 Hypomagnesemia; F10.11 Alcohol abuse, in remission; E16.2 Hypoglycemia, unspecified; K70.9 Alcoholic liver disease, unspecified; I67.9 Cerebrovascular disease, unspecified; I25.10 Atherosclerotic heart disease of native coronary artery without angina pectoris; G47.00 Insomnia, unspecified; F17.210 Nicotine dependence, cigarettes, uncomplicated; N18.6 End stage renal disease; Z51.5 Encounter for palliative care; J44.9 Chronic obstructive pulmonary disease, unspecified; K72.90 Hepatic failure, unspecified without coma; D63.1 Anemia in chronic kidney disease; Z68.20 Body mass index [BMI] 20.0-20.9, adult; Z86.73 Personal history of transient ischemic attack (TIA), and cerebral infarction without residual deficits; Z87.11 Personal history of peptic ulcer disease; Z95.1 Presence of aortocoronary bypass graft; Z88.1 Allergy status to other antibiotic agents; Z79.899 Other long term (current) drug therapy; Z88.5 Allergy status to narcotic agent; Z88.8 Allergy status to other drugs, medicaments and biological substances; Z03.818 Encounter for observation for suspected exposure to other biological agents ruled out
CPT/HCPCS: 10078; 50455